=== PATIENT | male | born 1955 | race Caucasian/White ===

== ENCOUNTER 2019-10-19 09:02 | Day surgery (SDC) | payer MEDICARE ==
[~2019-10-19] VITALS: Ht 193 cm; Wt 73.1 kg
[~2019-10-19 09:02] MED LIST: THERA1 EACH PO
--- NOTE | 2019-10-19 10:10 | NUR ---
Ambulatory in Day Surgery History, Chart, Medications and Allergies reviewed before start of procedure.Lungs clear T/O to Auscultation. Patient confirms NPO status and agrees with scheduled surgery. Patient States Post-Procedure ride home has been arranged. Patient states colon prep results clear.
--- NOTE | 2019-10-19 10:50 | NUR ---
10/19/19 1050 Travis Moreno PATIENT DETERMINED TO BE ASA APPROPRIATE FOR PROPOFOL SEDATION PRIOR TO START OF PROCEDURE BY . 3-LEAD EKG REVIEWED WITH PHYSICIAN PRIOR TO START OF PROCEDURE.PATIENT CONFIRMS NPO STATUS AND AGREES WITH SCHEDULED PROCEDURE.History, Chart, Medications and Allergies reviewed before start of procedure.MONITOR INTACT WITH CONTINUOUS PULSE OXIMETRY AND INTERMITTENT BP.O2 VIA N/C INTACT THROUGHOUT SEDATION/PROCEDURE.HURRICAINE SPRAY TO OROPHARYX.Bite Block Placed
--- NOTE | 2019-10-19 12:28 | NUR ---
Patient up to Ambulate independently. Gait steady. Discharge instructions reviewed with patient. Patient verbalizes understanding. Copy given to patient to take home. Patient States Post-Procedure ride home has been arranged. Discharged via wheelchair to private car for ride home. PT PIPE RETUNED TO PATIENT.
== END 2019-10-19 23:19 | disposition home or self-care (01) ==
LOC: ORSCMMR 09:02 → ORD 10:00 → ORSCMMR 10:00
DX: Z12.11 Encounter for screening for malignant neoplasm of colon (principal); R10.13 Epigastric pain; R11.0 Nausea
CPT/HCPCS: 88305; 88342; J2704; J7120

== ENCOUNTER → 2024-10-02 | Outpatient (CLI) | payer MEDICARE ==
[~2024-10-02] MED LIST changes: +LORAZEPAM0.5 MG; +OMEP20ER; +TRAZ50
== END ==
LOC: LAB SHORT 07:16 → LAB 07:16
DX: C77.0 Secondary and unspecified malignant neoplasm of lymph nodes of head, face and neck (principal); C10.8 Malignant neoplasm of overlapping sites of oropharynx; R59.0 Localized enlarged lymph nodes
CPT/HCPCS: 88173

== ENCOUNTER 2024-10-09 10:48 | Day surgery (SDC) | payer MEDICARE ==
[~2024-10-09] VITALS: Ht 193 cm; Wt 74.2 kg
[~2024-10-09 10:48] MED LIST changes: +Dexamethasone Sod Phos 10 MG/ML 1ML VIAL ONE; +EPINEPhrine HCl 1 MG / ML 30ML Vial IV ONE; +FentaNYL Citrate 50 MCG/ML 2 ML Injection ONE; -LORAZEPAM0.5 MG; +Lidocaine 2%-Epineph 1:200000 20 ML SDV EPI ONE; -OMEP20ER; +Ondansetron HCl 2 MG / ML 2ML Vial ONE; +Rocuronium Bromide 10 MG/ML 5ML Injection IV ONE; +Sugammadex Sodium 200 MG/2ML SDV (100 MG/ML) ONE; -TRAZ50; +propofoL 20 ML IV ONE
[2024-10-09] MEDS ORDERED: TRAZ50 (11:12)
[2024-10-09] MEDS ORDERED: LORAZEPAM0.5 MG (11:12)
[2024-10-09] MEDS ORDERED: OMEP20ER (11:13)
[2024-10-09] MEDS ORDERED: Lactated Ringer's 1,000 ML IV ONE ×2 (11:16→12:14)
[2024-10-09] MEDS ORDERED: EPINEPhrine HCl 1 MG/ML 1ML Amp XX ONE (11:45)
[2024-10-09 12:26] VITALS: BP 121/71
--- NOTE | 2024-10-09 13:17 | NUR ---
10/09/24 1317 Deacon Flores PT STATED HE IS TAKING TRAZADONE AND LORAZAPAM AND ASKED WHETHER IT IS OKAY TO TAKE THESE MEDICATIONS IN CONJUNCTION WITH OXYCODONE PERSCRIBED FOR POST-OP PAIN. PT'S PHARMACY WAS CONTACTED AND PHARMACIST APPROVED TAKING THE MEDICATIONS PERSCRIBED. HOWEVER, PT WAS INSTRUCTED BY RN TO SPACE OUT DOSES OF THE MEDICATION AND NOT TAKE ALL THREE AT THE SAME TIME.
== END 2024-10-09 13:15 | disposition home or self-care (01) ==
LOC: ORSCSDS 10:48
PROVIDERS: Otolaryngology
PROC: 0CBM8ZX Excision of Pharynx, Via Natural or Artificial Opening Endoscopic, Diagnostic (ICD-10-PCS; principal; 2024-10-09 14:15)
DX: C10.8 Malignant neoplasm of overlapping sites of oropharynx (principal); R59.1 Generalized enlarged lymph nodes; Z87.891 Personal history of nicotine dependence
CPT/HCPCS: 88305; 88342; J0171; J1100; J2405; J2704; J3010; J7120

== ENCOUNTER 2024-11-02 12:53 | Day surgery (SDC) | payer MEDICARE, OTHER ==
[~2024-11-02] VITALS: Ht 190.5 cm; Wt 73.3 kg
[2024-11-02] VITALS (14 sets, daily range): BP systolic 118–159; BP diastolic 72–93
[~2024-11-02 12:53] MED LIST changes: -Dexamethasone Sod Phos 10 MG/ML 1ML VIAL ONE; -EPINEPhrine HCl 1 MG / ML 30ML Vial IV ONE; -FentaNYL Citrate 50 MCG/ML 2 ML Injection ONE; +LORAZEPAM0.5 MG PO; -Lidocaine 2%-Epineph 1:200000 20 ML SDV EPI ONE; +MAGNESIUM GLUCO27 M1 PO; +MELA3 PO; +OMEP20ER; -Ondansetron HCl 2 MG / ML 2ML Vial ONE; +QUERCETIN500 MG PO; -Rocuronium Bromide 10 MG/ML 5ML Injection IV ONE; -Sugammadex Sodium 200 MG/2ML SDV (100 MG/ML) ONE; +TRAZ50; +VITAMIN D310 MC4 PO; -propofoL 20 ML IV ONE
[2024-11-02] MEDS ORDERED: Bupivacaine 0.5% HCl 5 MG/ML 30MLVIAL ONE (13:20)
[2024-11-02] MEDS ORDERED: Ampicillin Sod/Sulbactam Sod 3 GM in NS 100 ML IV SCH (13:25)
[2024-11-02] MEDS ORDERED: Lactated Ringer's 1,000 ML IV SCH (13:25)
[2024-11-02] MEDS ORDERED: FentaNYL Citrate 50 MCG/ML 5 ML Injection ONE (13:40)
[2024-11-02] MEDS ORDERED: propofoL 20 ML IV ONE (13:40)
[2024-11-02] MEDS ORDERED: Rocuronium Bromide 10 MG/ML 5ML Injection IV ONE (13:40)
[2024-11-02] MEDS ORDERED: Dexamethasone Sod Phos 10 MG/ML 1ML VIAL ONE (13:40)
[2024-11-02] MEDS ORDERED: Sugammadex Sodium 200 MG/2ML SDV (100 MG/ML) ONE (13:40)
[2024-11-02] MEDS ORDERED: Ondansetron HCl 2 MG / ML 2ML Vial ONE (13:40)
--- NOTE | 2024-11-02 13:45 | NUR ---
AMBULATORY INTO [facility]. PT IS A&OX4 AND VERBALIZES THAT HE FEELS VERY ANXIOUS. HISTORY AND ALLERGIES REVIEWED. LUNGS CLEAR. NPO STATUS CONFIRMED. CHLORHEXIDINE SHOWER X 2 AND CHLORHEXIDINE WIPE TO ABDOMEN X 2. PT SPOUSE JANKI IS PT RIDE HOME. SHE HAS BEGUN THE PEG TUBE EDUCATION WITH DIETARY. PT BELONGINGS SENT WITH JANKI.
[2024-11-02] MEDS ORDERED: Midazolam HCl 1MG / ML 2ML Vial IV ONE (14:15)
--- NOTE | 2024-11-02 15:39 | NUR ---
11/02/24 1539 Kayleen Allen 20FR. G-TUBE PLACED BY DR. REDMAN. ALL COUNTS CORRECT.
[2024-11-02] MEDS ORDERED: OxyCODONE HCL 5 MG TAB PO PRN (16:15)
[2024-11-02] MEDS ORDERED: OxyCODONE 5 mg/Acetamin 325 mg TABLET PO PRN (16:55)
--- NOTE | 2024-11-02 18:36 | NUR ---
Patient up to Ambulate independently. Gait steady. Discharge instructions reviewed with patient. Patient verbalizes understanding. Copy given to patient to take home, WELL WHO DEMONSTRATED FLUSHING PEG TUBE. Patient States Post-Procedure ride home has been arranged. Discharged via wheelchair to private car for ride home. PT REPORTS READY TO GO HOME. REPORTS PAIN TOLERABLE. INCISIONS AND PEG TUBE APPEAR WNL, C/D/I.
== END 2024-11-02 18:36 | disposition home or self-care (01) ==
LOC: ORD 12:53 → ORSCMMR 12:53 → ORD 18:36
PROVIDERS: Surgery
PROC: 8E0W4CZ Robotic Assisted Procedure of Trunk Region, Percutaneous Endoscopic Approach (ICD-10-PCS; 2024-11-02)
PROC: 0DH64UZ Insertion of Feeding Device into Stomach, Percutaneous Endoscopic Approach (ICD-10-PCS; principal; 2024-11-02 14:00)
PROC: 3E0T3BZ Introduction of Anesthetic Agent into Peripheral Nerves and Plexi, Percutaneous Approach (ICD-10-PCS; principal; 2024-11-02 14:00)
DX: C10.8 Malignant neoplasm of overlapping sites of oropharynx (principal); R59.0 Localized enlarged lymph nodes; E78.5 Hyperlipidemia, unspecified; Z87.891 Personal history of nicotine dependence; Z79.899 Other long term (current) drug therapy
CPT/HCPCS: A9270; C1728; J0295; J1100; J2250; J2405; J2704; J3010; J7120

== ENCOUNTER → 2025-02-07 | Outpatient (CLI) | payer OTHER | LOC: PLD 08:06 → LAB 08:06 | DX: L57.0 Actinic keratosis (principal); D49.2 Neoplasm of unspecified behavior of bone, soft tissue, and skin | CPT/HCPCS: 88305 ==